=== PATIENT | female | born 1950 | race Caucasian/White ===

== ENCOUNTER 2018-12-20 14:58 | Inpatient (IN) | payer OTHER ==
[~2018-12-20] VITALS: Ht 167.6 cm; Wt 75.9 kg
[~2018-12-20 14:58] MED LIST: ACYC-114 PO; ALBU2.5V11 NEB; ALPR1TAB5 PO; AMLO-150 PO; CETI10CA11 PO; DOXY50CA42 PO; FLUO25PO; FLUT1DIS3 INH; GLIP5POW PO; LEVO750T26 PO; LORA-446 PO; LORA1TAB PO; METF850T PO; METH750T87 PO; METO-93 PO; METO50TA82 PO; MORP-52 PO; MORP30TA3 PO; NICO-486 TD; OLAN7.5T5 PO; OMEP-110 PO; OXYC10TA6 PO; OXYC20TA2 PO; OXYC30TA66 PO; PRED20TA PO; PRED5TAB PO; PREG25CA PO; SITA50TA PO; TIOT18CA IH; VENL37.57 PO; VENL75TA PO
[2018-12-20] MEDS ORDERED: ALBUTEROL/IPRATROPIUM 2.5MG/0.5MG, 3 ML NPPB ONE (15:30)
[2018-12-20 15:38] LABS: BASOPHILS # (AUTO) 0.06 x10^3/uL (0-0.1); BASOPHILS % (AUTO) 1 % (0-1); EOSINOPHILS # (AUTO) 0.18 x10^3/uL (0-0.4); EOSINOPHILS % (AUTO) 2 % (1-7); LYMPHOCYTES # (AUTO) 3.61 x10^3/uL (1-3.4); LYMPHOCYTES % (AUTO) 33 % (22-44); MD NO; MEAN CORPUSCULAR HEMOGLOBIN 30.9 pg (27.0-34.8); MEAN CORPUSCULAR HGB CONC 31.9 g/dL (32.4-35.8); MEAN CORPUSCULAR VOLUME 96.8 fL (80-100); MONOCYTES # (AUTO) 0.72 x10^3/uL (0.2-0.8); MONOCYTES % (AUTO) 7 % (2-9); NEUTROPHILS # (AUTO) 6.38 x10^3/uL (1.8-6.8); NEUTROPHILS % (AUTO) 58 % (42-75); PLATELET COUNT 328 x10^3/uL (130-400); RED BLOOD COUNT 5.03 x10^6/uL (3.82-5.3); RED CELL DISTRIBUTION WIDTH 15.6 % (9.6-15.2)
[2018-12-20 15:41] LABS: ALBUMIN 4.1 g/dL (3.4-5.0); ANION GAP 5 mmol/L (5-15); CALCIUM 9.4 mg/dL (8.5-10.1); CHLORIDE 111 mmol/L (98-107); CREATININE 0.77 mg/dL (0.55-1.02)
[2018-12-20 15:46] LABS: TROPONIN I < 0.015 ng/mL (0.000-0.045)
[2018-12-20] MEDS ORDERED: ALBUTEROL/IPRATROPIUM 2.5MG/0.5MG, 3 ML ONE (16:16)
--- NOTE | 2018-12-20 16:20 | NUR ---
Pt brought to [facility] from [employer] Several days of increasing cough, SOB & L sd ribs pain where she believes she "pulled something" from coughing. Has hx COPD & current 1/2ppd smoker. Using neb tx @ home w/out relief. EKG, labs & CXR complete from [facility] orders. VS updated, cardiac, NIBP & SPO2 monitors placed. RT @ BS administering duoneb tx.
--- NOTE | 2018-12-20 17:53 | NUR ---
TASK RN: PIV PLACED FOR ADMISSION.
--- NOTE | 2018-12-20 18:20 | NUR ---
DAUGHTER AT BEDSIDE. CONTINUE TO MONITOR PT. PROVIDED SNACK. AWARE OF PENDING ADMISSION
[2018-12-20] MEDS ORDERED: FLUT1DIS5 IH (18:25)
[2018-12-20] MEDS ORDERED: IBUP-1223 PO (18:25)
--- NOTE | 2018-12-20 18:38 | NUR ---
PT WITH [facility], DENIED BY [facility]
--- NOTE | 2018-12-20 19:21 | NUR ---
REPORT TO LUAN WANG. FLOOR READY FOR PT. TRANSPORT.
[2018-12-20 19:45] VITALS: BP 140/75
[2018-12-20] MEDS ORDERED: GUAIFENESIN/DM 200-20MG, 10ML UDC PO PRN (20:00)
[2018-12-20] MEDS ORDERED: ONDANSETRON ODT 4 MG PO PRN (20:00)
[2018-12-20] MEDS ORDERED: BISACODYL 10 MG SUPP PR PRN (20:00)
[2018-12-20] MEDS ORDERED: TEMAZEPAM 15 MG CAPSULE PO PRN (20:00)
[2018-12-20] MEDS ORDERED: ENALAPRILAT 1.25 MG/ML, 2ML IVPush PRN (20:00)
[2018-12-20] MEDS: BUDESONIDE 0.5 MG/2 ML INHA NPPB SCH (21:00)
[2018-12-20] MEDS ORDERED: ALBUTEROL SULFATE 2.5 MG/3 ML NPPB PRN (21:00)
[2018-12-20 21:28] LABS: TROPONIN I < 0.015 ng/mL (0.000-0.045)
[2018-12-20] MEDS: ENOXAPARIN 40 MG/0.4 ML SQ SCH (22:05)
[2018-12-20] MEDS: NICOTINE 21 MG/24 HR PATCH.TD24 TD SCH (22:05)
[2018-12-20] MEDS: KETOROLAC 30 MG/1 ML IV PRN (22:30)
[2018-12-21 01:18] VITALS: BP 120/69
[2018-12-21 04:09] LABS: BASOPHILS # (AUTO) 0.05 x10^3/uL (0-0.1); BASOPHILS % (AUTO) 1 % (0-1); EOSINOPHILS # (AUTO) 0.02 x10^3/uL (0-0.4); EOSINOPHILS % (AUTO) 0 % (1-7); LYMPHOCYTES # (AUTO) 2.04 x10^3/uL (1-3.4); LYMPHOCYTES % (AUTO) 24 % (22-44); MD NO; MEAN CORPUSCULAR HGB CONC 33.5 g/dL (32.4-35.8); MEAN CORPUSCULAR VOLUME 95.5 fL (80-100); MEAN PLATELET VOLUME 8.9 fL (7.4-10.4); MONOCYTES % (AUTO) 4 % (2-9); NEUTROPHILS # (AUTO) 5.96 x10^3/uL (1.8-6.8); NEUTROPHILS % (AUTO) 71 % (42-75); PLATELET COUNT 304 x10^3/uL (130-400); RED BLOOD COUNT 4.66 x10^6/uL (3.82-5.3); RED CELL DISTRIBUTION WIDTH 15.6 % (9.6-15.2)
[2018-12-21 04:21] LABS: ANION GAP 4 mmol/L (5-15); CHLORIDE 111 mmol/L (98-107); CREATININE 0.91 mg/dL (0.55-1.02)
[2018-12-21 04:25] LABS: TROPONIN I < 0.015 ng/mL (0.000-0.045)
[2018-12-21 04:40] VITALS: BP 140/75
[2018-12-21 07:07] VITALS: BP 164/96
[2018-12-21] MEDS: KETOROLAC 30 MG/1 ML IV PRN ×3 (07:55→20:17)
[2018-12-21] MEDS: BUDESONIDE 0.5 MG/2 ML INHA NPPB SCH ×2 (08:47→20:30)
[2018-12-21] MEDS: ACETAMINOPHEN 325 MG TABLET PO PRN (10:58)
[2018-12-21] MEDS: GABAPENTIN 300 MG CAPSULE PO PRN (10:58)
[2018-12-21 12:03] VITALS: BP 168/83
[2018-12-21] MEDS: LIDODERM 5% PATCH TD PRN (14:04)
[2018-12-21] MEDS ORDERED: LISI40TA PO (17:41)
[2018-12-21] MEDS: LISINOPRIL 20 MG TABLET PO SCH (18:15)
[2018-12-21] MEDS: ENOXAPARIN 40 MG/0.4 ML SQ SCH (19:33)
[2018-12-21] MEDS: NICOTINE 21 MG/24 HR PATCH.TD24 TD SCH (19:33)
[2018-12-21 19:36] VITALS: BP 148/95
[2018-12-22] MEDS: KETOROLAC 30 MG/1 ML IV PRN ×3 (02:19→15:04)
[2018-12-22 02:22] VITALS: BP 157/87
[2018-12-22 06:27] VITALS: BP 177/99
[2018-12-22] MEDS: BUDESONIDE 0.5 MG/2 ML INHA NPPB SCH (07:27)
[2018-12-22] MEDS: ACETAMINOPHEN 325 MG TABLET PO PRN ×2 (07:42→13:12)
[2018-12-22] MEDS: GABAPENTIN 300 MG CAPSULE PO PRN (07:42)
[2018-12-22] MEDS: LISINOPRIL 20 MG TABLET PO SCH (07:43)
[2018-12-22] MEDS ORDERED: AMLODIPINE 5 MG TABLET PO SCH (09:00)
[2018-12-22 13:10] VITALS: BP 134/77
[2018-12-22] MEDS: LIDODERM 5% PATCH TD PRN (13:12)
[2018-12-22] MEDS ORDERED: METH4TAB2 PO (14:25)
[2018-12-22] MEDS ORDERED: AMLO-150 PO (14:25)
[2018-12-22] MEDS ORDERED: LIDO700A20 TD (14:25)
[2018-12-22] MEDS ORDERED: NICO-487 TD (14:25)
[2018-12-22] MEDS ORDERED: TIOT18CA INH (14:25)
== END 2018-12-22 17:13 | disposition home or self-care (01) | DRG 191 ==
LOC: ED 17:51 → EDIP 18:33 → 3NE 19:43
PROVIDERS: ADMIT Internal Medicine; ATTEND Internal Medicine
DX: J44.1 Chronic obstructive pulmonary disease with (acute) exacerbation (principal); I69.354 Hemiplegia and hemiparesis following cerebral infarction affecting left non-dominant side; J96.10 Chronic respiratory failure, unspecified whether with hypoxia or hypercapnia; E27.9 Disorder of adrenal gland, unspecified; F17.210 Nicotine dependence, cigarettes, uncomplicated; F25.9 Schizoaffective disorder, unspecified; F32.9 Major depressive disorder, single episode, unspecified; G89.4 Chronic pain syndrome; I11.9 Hypertensive heart disease without heart failure; Z82.5 Family history of asthma and other chronic lower respiratory diseases; Z86.14 Personal history of Methicillin resistant Staphylococcus aureus infection; Z87.01 Personal history of pneumonia (recurrent); Z91.19 Patient's noncompliance with other medical treatment and regimen; Z98.1 Arthrodesis status; Z99.81 Dependence on supplemental oxygen; S29.011A Strain of muscle and tendon of front wall of thorax, initial encounter; X58.XXXA Exposure to other specified factors, initial encounter; Y93.89 Activity, other specified; Y92.89 Other specified places as the place of occurrence of the external cause; Y99.8 Other external cause status
CPT/HCPCS: 0399T; 36415; 71045; 71250; 80048; 82040; 84484; 85025; 93005; 93306; 94640; 99285; G0378; J1650; J1885; J7613; J7620; J7626; J7512